=== PATIENT | female | born 1960 | race Caucasian/White ===

== ENCOUNTER 2019-10-12 18:32 | Observation (INO) | payer OTHER ==
[2019-10-12] MEDS ORDERED: BABY ASPIRIN 81 MG CHEW PO ONE (18:59)
[2019-10-12] MEDS ORDERED: NITRO-BID 2% UD PACKETS TOP ONE (18:59)
[2019-10-12] MEDS ORDERED: APRESOLINE 20 MG/ML INJ IV ONE (19:01)
[2019-10-12] MEDS ORDERED: NITRO-BID 2% UD PACKETS ONE (19:03)
[2019-10-12] MEDS ORDERED: BABY ASPIRIN 81 MG CHEW ONE (19:03)
[2019-10-12] MEDS ORDERED: APRESOLINE 20 MG/ML INJ ONE (19:04)
[2019-10-12 19:09] LABS: Absolute Neutrophil Ct (ANC) 3.71 (1.4-6.9); Basophil (Absolute #) 0.06 (0-0.4); Eosinophil % 1.9 % (0.00-5.0); Eosinophil (Absolute #) 0.11 (0-0.5); Hemoglobin 14.7 gm/dl (12.0-16.0); Lymphocyte (Absolute #) 1.56 (1.0-4.6); Lymphocytes % 26.6 % (24.0-44.0); Mean Cell Volume 100.9 fl (78-100); Mean Corpuscular Hemoglobin 34.5 pg (26-32); Mean Corpuscular Hgb Concent. 34.2 g/dl (32-36); Mean Platelet Volume 8.8 fl (7.5-11.0); Monocyte (Absolute #) 0.42 (0.0-1.3); Monocytes % 7.2 % (0.0-12.0); Neutrophil % 63.3 % (36.0-66.0); Platelet Count 211 K/mm3 (150-450); Red Blood Count 4.26 M/mm3 (4.1-5.4); Red Cell Distribution Width 14.1 % (11.5-14.0); White Blood Count 5.9 K/mm3 (4.0-10.5)
--- NOTE | 2019-10-12 19:09 | ERPHSYRPT ---
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, pt stated that she started taking synthroid today, pt states that she hasn't felt well since the treadmill yesterday and then today she has felt like she has had pressure in her chest, left arm is uncomfortable and feels like her chest pressure goes out through the back, pt states that she feels "shaky", headache Triage Nursing Assessment: Pt's daughter brought her to the ER, hypertensive, pt denies pain but states that she has pressure in her chest, no edmea, skin n/w /d, bowel sounds heard in all 4, heart sounds heard, lungs clear Physician History: 58 years old female presented in the ER with chief complaint of substernal chest pressure and tightness since yesterday. Patient reports she is been feeling off and on chest tightness and pressure for quite some time, was recommended outpatient echo and stress test which she has done yesterday and since then her pressure and tightness is getting worse. It is radiating to the left arm without any significant aggravating or relieving factors. She also noticed her blood pressure is more than 200 although she does not take any antihypertensive routinely. She is recently diagnosed with hypothyroidism and started taking Synthroid today. No shortness of breath no cough but has some palpitations at times. Denies any history of cardiac cath. Timing/Duration: yesterday, intermittent, worse Activities at Onset: rest Quality: pressure, tightness Location: substernal, central Chest Pain Radiation: arm Severity of Pain-Max: moderate Severity of Pain-Current: moderate Modifying Factors: Improves With: nothing Associated Symptoms: palpitations Prior Chest Pain/Cardiac Workup: echocardiography, stress test Nitro Today/Relief: no nitro taken today Aspirin Treatment Today: no aspirin today Allergies/Adverse Reactions: No Known Drug Allergies Allergy (Verified 10/12/19 18:55) Home Medications: Levothyroxine Sodium [Euthyrox] 50 mcg PO DAILY 10/12/19 [History] Travel Risk - International Travel Have you traveled outside of the country in past 3 weeks: No Have you or anyone close to you been diagnosed with or: No Do your reside in a community with a known COVID-19 case?: Yes If Yes where:: [facility] - Coronavirus Screening Has patient experienced Coronavirus symptoms: No - Review of Systems Constitutional: Fatigue Eyes: No Symptoms Ears, Nose, & Throat: No Symptoms Respiratory: No Symptoms Cardiac: Chest Pain, Palpitations Abdominal/Gastrointestinal: No Symptoms Genitourinary Symptoms: No Symptoms Musculoskeletal: No Symptoms Skin: No Symptoms Neurological: No Symptoms Psychological: No Symptoms Endocrine: No Symptoms Hematologic/Lymphatic: No Symptoms Immunological/Allergic: No Symptoms - Past Medical History Pertinent Past Medical History: Yes Endocrine Medical History: Hypothyroidism - Past Surgical History Past Surgical History: Yes Female Surgical History: Section, Tubal Ligation - Social History Smoking Status: Former smoker Exposure to second hand smoke: No Drug Use: none Patient Lives Alone: No - Female History Hx Now: No (menopause) - Nursing Vital Signs Nursing Vital Signs: Initial Vital Signs Temperature 98.5 F 10/12/19 18:36 Pulse Rate 94 H 10/12/19 18:36 Respiratory Rate 18 10/12/19 18:36 Blood Pressure 220/121 10/12/19 18:36 O2 Sat by Pulse Oximetry 98 10/12/19 18:36 Pain Scale Pain Intensity 3 - Physical Exam General Appearance: no apparent distress, alert, anxiety Eye Exam: PERRL/EOMI, eyes nml inspection Ears, Nose, Throat Exam: normal ENT inspection, TMs normal, pharynx normal Neck Exam: normal inspection, non-tender, supple, full range of motion Respiratory Exam: normal breath sounds, lungs clear, No respiratory distress Cardiovascular Exam: regular rate/rhythm, normal heart sounds, normal peripheral pulses Gastrointestinal/Abdomen Exam: soft, normal bowel sounds, No tenderness Back Exam: normal inspection, normal range of motion, No CVA tenderness Extremity Exam: normal inspection, normal range of motion Neurologic Exam: alert, oriented x 3, cooperative, 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 as tested Skin Exam: normal color SpO2 Interpretation: normal SpO2: 97 O2 Delivery: Room Air - Course Nursing assessment & vital signs reviewed: Yes EKG Interpreted by Me: RATE, NORMAL AXIS Ordered Tests: Active Orders 24 hr Category Date Time Status [employer] STAT Care 10/12/19 18:46 Active EKG-ER Only STAT Care 10/12/19 18:45 Active IV Insertion STAT Care 10/12/19 18:45 Active Pulse Oximetry (ED) STAT Care 10/12/19 18:46 Active CHEST 1 VIEW (PORTABLE) Stat Exams 10/12/19 19:17 Taken CBC W DIFF Stat Lab 10/12/19 18:42 Completed CMP Stat Lab 10/12/19 18:42 Completed D-DIMER QUANTITATIVE Stat Lab 10/12/19 18:42 Completed NT PRO BNP Stat Lab 10/12/19 18:42 Completed TROPONIN Q3H Lab 10/12/19 18:42 Completed TROPONIN Q3H Lab 10/12/19 22:00 Ordered TROPONIN Q3H Lab 10/13/19 01:00 Ordered TROPONIN Q3H Lab 10/13/19 04:00 Ordered TROPONIN Q3H Lab 10/13/19 07:00 Ordered Transfer Order Routine Transfer 10/12/19 Ordered Medication Summary Discontinued Medications Generic Name Dose Route Start Last Admin Trade Name Freq PRN Reason Stop Dose Admin Aspirin 324 mg 10/12/19 18:59 10/12/19 19:06 Baby Aspirin 81 Mg Chew PO 10/12/19 19:00 324 mg STAT ONE Administration Aspirin Confirm 10/12/19 19:03 Baby Aspirin 81 Mg Chew Administered 10/12/19 19:04 Dose 324 mg .ROUTE .STK-MED ONE Hydralazine HCl 10 mg 10/12/19 19:01 10/12/19 19:06 Apresoline 20 Mg/Ml Inj IV 10/12/19 19:02 10 mg STAT ONE Administration Hydralazine HCl Confirm 10/12/19 19:04 Apresoline 20 Mg/Ml Inj Administered 10/12/19 19:05 Dose 20 mg .ROUTE .STK-MED ONE Nitroglycerin 1 gm 10/12/19 18:59 10/12/19 19:06 Nitro-Bid 2% Ud Packets TOP 10/12/19 19:00 1 gm STAT ONE Administration Nitroglycerin Confirm 10/12/19 19:03 Nitro-Bid 2% Ud Packets Administered 10/12/19 19:04 Dose 1 gm .ROUTE .STK-MED ONE Lab/Rad Data: Laboratory Result Diagrams 10/12/19 18:42 10/12/19 18:42 Laboratory Results 10/12/19 10/12/19 10/12/19 Range/Units 18:42 18:42 18:42 WBC (4.0-10.5) K/mm3 RBC (4.1-5.4) M/mm3 Hgb (12.0-16.0) gm/dl Hct (35-47) % MCV (78-100) fl MCH (26-32) pg MCHC (32-36) g/dl RDW (11.5-14.0) % Plt Count (150-450) K/mm3 MPV (7.5-11.0) fl Gran % (36.0-66.0) % Eos # (Auto) (0-0.5) Absolute Lymphs (auto) (1.0-4.6) Absolute Monos (auto) (0.0-1.3) Lymphocytes % (24.0-44.0) % Monocytes % (0.0-12.0) % Eosinophils % (0.00-5.0) % Basophils % (0.0-0.4) % Absolute Granulocytes (1.4-6.9) Basophils # (0-0.4) D-Dimer 386 (215-500) ng/mL Sodium 138 (137-145) mmol/L Potassium 3.7 (3.5-5.1) mmol/L Chloride 99 (98-107) mmol/L Carbon Dioxide 29 (22-30) mmol/L Anion Gap 13.7 (5-15) MEQ/L BUN 22 H (7-17) mg/dL Creatinine 0.80 (0.52-1.04) mg/dL Estimated GFR > 60.0 ML/MIN Glucose 103 (74-106) mg/dL Calcium 9.2 (8.4-10.2) mg/dL Total Bilirubin 0.60 (0.2-1.3) mg/dL AST 30 (14-36) U/L ALT 25 (0-35) U/L Alkaline Phosphatase 83 (38-126) U/L Troponin I < 0.012 (0.000-0.034) ng/mL NT-Pro-B Natriuret Pep 95.6 (0-900) pg/mL Serum Total Protein 8.3 H (6.3-8.2) g/dL Albumin 4.6 (3.5-5.0) g/dL 06/05/20 Range/Units 18:42 WBC 5.9 (4.0-10.5) K/mm3 RBC 4.26 (4.1-5.4) M/mm3 Hgb 14.7 (12.0-16.0) gm/dl Hct 43.0 (35-47) % MCV 100.9 H (78-100) fl MCH 34.5 H (26-32) pg MCHC 34.2 (32-36) g/dl RDW 14.1 H (11.5-14.0) % Plt Count 211 (150-450) K/mm3 MPV 8.8 (7.5-11.0) fl Gran % 63.3 (36.0-66.0) % Eos # (Auto) 0.11 (0-0.5) Absolute Lymphs (auto) 1.56 (1.0-4.6) Absolute Monos (auto) 0.42 (0.0-1.3) Lymphocytes % 26.6 (24.0-44.0) % Monocytes % 7.2 (0.0-12.0) % Eosinophils % 1.9 (0.00-5.0) % Basophils % 1.0 (0.0-0.4) % Absolute Granulocytes 3.71 (1.4-6.9) Basophils # 0.06 (0-0.4) D-Dimer (215-500) ng/mL Sodium (137-145) mmol/L Potassium (3.5-5.1) mmol/L Chloride (98-107) mmol/L Carbon Dioxide (22-30) mmol/L Anion Gap (5-15) MEQ/L BUN (7-17) mg/dL Creatinine (0.52-1.04) mg/dL Estimated GFR ML/MIN Glucose (74-106) mg/dL Calcium (8.4-10.2) mg/dL Total Bilirubin (0.2-1.3) mg/dL AST (14-36) U/L ALT (0-35) U/L Alkaline Phosphatase (38-126) U/L Troponin I (0.000-0.034) ng/mL NT-Pro-B Natriuret Pep (0-900) pg/mL Serum Total Protein (6.3-8.2) g/dL Albumin (3.5-5.0) g/dL - Progress Progress: improved, re-examined Air Movement: good Progress Note: 10/12/19 20:48 58 years old is evaluated for chest pressure tightness and elevated blood pressure. She is given aspirin and Nitropaste along with one-time 10 mg dose of hydralazine, on reevaluation her chest pain is almost gone and feeling much better. Her headache is no more. Blood pressure improved to 170 systolic. EKG did not show acute ST elevation but has some questionable depressions. Initial troponins are negative. She has a negative D-dimers as well. Chest x- ray I did not appreciate any acute cardiopulmonary findings. With patient's intermittent chest pain and worsening after exertion yesterday stress test, needs further evaluation with possible CTA coronaries and serial troponins. I have discussed with hospitalist Dr. Garcia and patient is being admitted. Blood Culture(s) Obtained: No Antibiotics given: No Discussed with : Toribio Will see patient in: hospital (observation) Counseled pt/family regarding: lab results, diagnosis, rad results - Departure Departure Disposition: Observation Clinical Impression: Chest pain, rule out acute myocardial infarction, Hypertensive urgency Condition: Stable Critical Care Time: Yes Critical Care Time(excluding separately billable procedures): Critical 30-74 mins Referrals: MARIALUISA RAMON [Primary Care Provider] -
[2019-10-12 19:26] LABS: ALBUMIN 4.6 g/dL (3.5-5.0); ALKALINE PHOSPHATASE 83 U/L (38-126); ANION GAP 13.7 MEQ/L (5-15); BLOOD UREA NITROGEN 22 mg/dL (7-17); CHLORIDE 99 mmol/L (98-107); Calcium 9.2 mg/dL (8.4-10.2); Carbon Dioxide 29 mmol/L (22-30); Glucose 103 mg/dL (74-106); NT PRO BNP 95.6 pg/mL (0-900); Potassium 3.7 mmol/L (3.5-5.1); SGOT/AST 30 U/L (14-36); SGPT/ALT 25 U/L (0-35); SODIUM 138 mmol/L (137-145); Total Protein 8.3 g/dL (6.3-8.2)
[2019-10-12] MEDS ORDERED: Zofran 4 MG/2 ML VIAL IV PRN (21:14)
[2019-10-12] MEDS ORDERED: APRESOLINE 20 MG/ML INJ IV PRN (21:14)
[2019-10-12] MEDS ORDERED: MAALOX ES 30 ML UNIT DOSE PO PRN (21:14)
[2019-10-12] MEDS ORDERED: MILK OF MAGNESIA 30 ML PO PRN (21:14)
[2019-10-12] MEDS ORDERED: TYLENOL 325 MG PO PRN (21:14)
[2019-10-12] MEDS ORDERED: Senokot-S Tablet PO PRN (21:14)
--- NOTE | 2019-10-12 21:39 | XRAY ---
Indication: Chest pain. Comparison: August 27, 2019. Portable chest remains hyperinflated with chronic lung markings. Remaining heart and lungs unremarkable. No new/acute findings.
[2019-10-13 04:58] LABS: Cholesterol 285 mg/dL (50-200); LDL, DIRECT 150 mg/dL (30-100); TRIGLYCERIDE 173 mg/dL (30-150)
[2019-10-13 05:02] LABS: HDL CHOLESTEROL 127 mg/dL (40-60)
[2019-10-13] MEDS ORDERED: Zestril 20 MG PO ONE (10:21)
[2019-10-13] MEDS ORDERED: SYNTHROID 50 MCG PO ONE (10:30)
[2019-10-13] MEDS: Ecotrin 325 MG PO SCH (11:08)
[2019-10-13] MEDS: ENOXAPARIN SODIUM SQ SCH (11:09)
[2019-10-14] MEDS ORDERED: SYNTHROID 50 MCG PO SCH (06:00)
[2019-10-14 08:26] VITALS: BP 139/63; PULSE 69; O2SAT 95
[2019-10-14] MEDS: ENOXAPARIN SODIUM SQ SCH (09:12)
[2019-10-14] MEDS: Ecotrin 325 MG PO SCH (09:12)
[2019-10-14] MEDS ORDERED: Zestril 20 MG PO SCH (10:00)
--- NOTE | 2019-10-14 10:00 | PCM.DCORD ---
- Discharge Discharge Date: 10/14/19 Disposition: Home, Self-Care Condition: Good Prescriptions: New Aspirin EC 325 mg [Ecotrin 325 MG] 325 mg PO DAILY #30 tablet.ec Lisinopril 20 mg [Zestril 20 MG] 20 mg PO DAILY #30 tablet Continue Levothyroxine Sodium [Euthyrox] 50 mcg PO DAILY Additional Instructions: Keep your appointment with carnival worker, Dr. Leos, that is scheduled for Tuesday. Return to ER if you have chest pain, shortness of breath or any other concerns. Follow up with: MARIALUISA RAMON [Primary Care Provider] - 1 Week
--- NOTE | 2019-10-15 14:53 | HP ---
HISTORY OF PRESENT ILLNESS: This is a 58 y/o lady who presented to the Emergency Department yesterday. She reported that she had a stress test the day before and hadn't felt well since then and reported a high BP with systolic into the 200s at home. She reports that she had a chest pain like a squeezing pain along with dyspnea and diaphoresis when she came to the Emergency Room. She denied any nausea. She reports on the outpatient treadmill stress test that they were concerned about a finding on that although RT says it has not been read by the physician yet and that she was referred to see Dr. Leos this coming Tuesday in the clinic, he is a fraud investigator. She reports she feels better now, but still feels "wonky" and when I asked her what she meant, for instance if she was dizzy when she got up, she said yes. She said she hadn't eaten a lot yesterday. She had some leg cramps overnight. She reports the squeezing chest pain is worse when she is lying down. She also had an echocardiogram 10/10/2019 and those results are in [place]. She had maybe some trouble with heart relaxing, but otherwise, the ejection fraction was good and they didn't mention any major valvular abnormalities or any pericardial effusion. REVIEW OF SYSTEMS: No abdomen pain. No nausea or vomiting. No diarrhea. No trouble urinating. No lower extremity edema. No fevers. No rashes. PAST MEDICAL HISTORY: Hypothyroidism, chest pain. PAST SURGICAL HISTORY: X 3. SOCIAL HISTORY: She does not smoke now. She quit 30 years ago. She drinks alcohol 2-3 times/week. She is and lives at home with her and her son. FAMILY HISTORY: Her mother is and at 77 from flu and pneumonia. Her father is and at age 79 from chronic obstructive pulmonary disease and black lung. He was a tobacco user as well. CURRENT MEDICATIONS: Levofloxacin 50 mcg PO daily that was started yesterday. ALLERGIES: NKDA. PHYSICAL EXAMINATION: VITAL SIGNS: Temperature current 98.4, temperature maximum 98.5, heart rate 88, respiratory rate 18, O2 saturation 95% on room air, BP 179/81. GENERAL: The patient is a pleasant, talkative, obese lady lying in bed in no acute distress. CVS: She has a regular rate and rhythm. No murmurs, gallops, or rubs appreciated. CHEST: Clear to auscultation bilaterally. No crackles or wheezes. ABDOMEN: Soft, nontender, nondistended with normal bowel sounds. EXTREMITIES: No clubbing, cyanosis, or edema. SKIN: Warm, dry, and intact. LABORATORY DATA: CBC was within normal limits. CMP with a BUN of 22. Triglycerides 173, cholesterol 285, LDL 150, HDL 127. Chest x-ray was read as hyperinflated chest. EKG is normal sinus rhythm with no ST or T wave changes with a rate of 76. ASSESSMENT AND PLAN: 1. CHEST PAIN. She has had serial negative troponins. She continues on telemetry without any event. She has her Nitropaste still in place. I have asked the nurses to remove that and will see how she is feeling later this afternoon. 2. HYPERTENSION. We are going to start Lisinopril 20 mg PO daily. 3. HYPOTHYROIDISM. Will restart her Synthroid 50 mcg PO daily. 4. DVT PROPHYLAXIS. Will use Lovenox.
--- NOTE | 2019-10-16 16:57 | DS ---
DISCHARGE DIAGNOSIS: 1. CHEST PAIN. 2. HYPERTENSION. 3. HYPOTHYROIDISM. 4. HYPERLIPIDEMIA. DISCHARGE PHYSICAL EXAM: VITALS: Temperature current 98.0, temperature maximum 98.3, heart rate 69, respiratory rate 16, O2 saturation 95% on room air, BP 139/63. GENERAL: The patient was a pleasant, talkative lady sitting up in no acute distress. CVS: She has a regular rate and rhythm. No murmurs, gallops, or rubs. CHEST: Clear to auscultation bilaterally. No crackles or wheezes. ABDOMEN: Soft, nontender, nondistended with normal bowel sounds. EXTREMITIES: No clubbing, cyanosis, or edema. SKIN: Warm, dry, and intact. EARS: Tympanic membranes are normal bilaterally. THROAT: Without any erythema or exudate. HOSPITAL COURSE: 1. Chest pain. The patient ruled out for an acute myocardial infarction. She had a normal EKG. She has a follow-up appointment already scheduled with Dr. Leos for this Tuesday after having an abnormal stress test last week. The patient denies any chest pain at this time. Will have her take aspirin 325 mg PO daily. She does not want to start a cholesterol medicine at this time. She was started on Lisinopril here and will plan to continue that. 2. Hypertension. Her BP is much better controlled with Lisinopril, just may need to continue to be adjusted as an outpatient for an ultimate goal of a BP of less than 120/80. The patient follows up with Vikki Becerra NP and plans to see her. 3. Hypothyroidism. She was recently started on levothyroxine. This was continued during her hospitalization. 4. Hyperlipidemia. The patient had a cholesterol panel that showed an LDL of 150. At this time, she wants to try diet and exercise and does not want to start a cholesterol medicine. DISCHARGE MEDICATIONS: Please see the discharge order. DISPOSITION: Patient was discharged home in fair condition. FOLLOW-UP: She is to follow-up with Vikki Becerra NP as well as adjunct faculty, Dr. Leos.
== END 2019-10-14 11:23 | disposition home or self-care (01) ==
LOC: ED 18:32 → MED SURG 21:04
PROVIDERS: ADMIT Internal Medicine; ATTEND Internal Medicine
DX: R07.9 Chest pain, unspecified (principal); I10 Essential (primary) hypertension; E03.9 Hypothyroidism, unspecified; E78.5 Hyperlipidemia, unspecified; Z79.899 Other long term (current) drug therapy; Z79.01 Long term (current) use of anticoagulants
CPT/HCPCS: 36415; 80053; 80061; 83721; 83880; 84484; 85025; 85379; 93005; 93041; 93268; 96374; 99291; G0378; 36000; 71045; 94760; 99285; J0360; J1650; A9270-GY

== ENCOUNTER 2020-01-15 11:22 | Emergency (ER) | payer OTHER ==
[2020-01-15] MEDS ORDERED: BABY ASPIRIN 81 MG CHEW PO ONE (11:42)
--- NOTE | 2020-01-15 11:45 | ERPHSYRPT ---
- History of Present Illness Time Seen by Provider: 01/15/20 11:40 Historian: patient Exam Limitations: no limitations Patient Subjective Stated Complaint: pain in left chest starting approx 0430 and going to her left shoulder Triage Nursing Assessment: Pt brought to the ER by her , hypertensive, states that the pain is worse when laying down, pulses normal, no edema, abnormal heart sounds heard Physician History: This is a 59-year-old obese white female who has a history of hypertension and hypothyroidism and presents with left anterior chest pain that radiates into her left shoulder. She describes this as an aching. Patient states that she has been under a lot of stress in the last few days. She is working very hard to clean up her home because her [place]. At approximately 4 30 this morning patient had sudden onset of this pain. The pain has improved but has not let up completely. 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 Leos, over the last 2 to 3 months. On 10/22/2019 patient underwent a nuclear medicine stress test which showed no evidence of pharmacologically induced reversible ischemia. Patient's ejection fraction was 67%. On 12/11/[address] cardiac calcium test. Her score was 0. There was no evidence of any coronary artery calcifications in any of her coronary arteries. Patient denies shortness of breath. She has no abdominal pain. She is had no fever or cough symptoms. Timing/Duration: today Activities at Onset: sleep Quality: aching Location: other (Anterior chest) Chest Pain Radiation: arm (Left shoulder) Severity of Pain-Max: mild Severity of Pain-Current: none Modifying Factors: Improves With: nothing Associated Symptoms: denies symptoms Nitro Today/Relief: no nitro taken today Aspirin Treatment Today: unknown Allergies/Adverse Reactions: No Known Drug Allergies Allergy (Verified 01/15/20 11:35) Home Medications: Levothyroxine Sodium [Euthyrox] 75 mcg PO DAILY 10/12/19 [History] Carvedilol 3.125 mg [Coreg 3.125 MG] 3.125 mg PO DAILY 01/15/20 [History] Travel Risk - International Travel Have you traveled outside of the country in past 3 weeks: No - Coronavirus Screening Are you exhibiting any of the following symptoms?: No Close contact with a COVID-19 positive Pt in past 14-21 Days: No - Review of Systems Constitutional: No Symptoms Eyes: No Symptoms Ears, Nose, & Throat: No Symptoms Respiratory: No Symptoms Cardiac: Chest Pain Abdominal/Gastrointestinal: No Symptoms Genitourinary Symptoms: No Symptoms Musculoskeletal: No Symptoms Skin: No Symptoms Neurological: No Symptoms Psychological: No Symptoms - Past Medical History Pertinent Past Medical History: Yes Neurological History: No Pertinent History ENT History: No Pertinent History Cardiac History: Other Respiratory History: No Pertinent History Endocrine Medical History: Hypothyroidism Musculoskeletal History: No Pertinent History GI Medical History: No Pertinent History History: No Pertinent History Psycho-Social History: No Pertinent History Female Reproductive Disorders: No Pertinent History Other Medical History: "heart is thick or stiff" - Past Surgical History Past Surgical History: Yes Neuro Surgical History: No Pertinent History Cardiac: No Pertinent History Respiratory: No Pertinent History Gastrointestinal: No Pertinent History Genitourinary: No Pertinent History Musculoskeletal: No Pertinent History Female Surgical History: Section, Tubal Ligation - Social History Smoking Status: Former smoker Exposure to second hand smoke: No Drug Use: none Patient Lives Alone: No - Female History Hx Now: No - Nursing Vital Signs Nursing Vital Signs: Initial Vital Signs Temperature 98.1 F 01/15/20 11:25 Pulse Rate 67 01/15/20 11:25 Respiratory Rate 16 01/15/20 11:25 Blood Pressure 183/82 01/15/20 11:25 O2 Sat by Pulse Oximetry 96 01/15/20 11:25 Pain Scale Pain Intensity 0 - Physical Exam General Appearance: no apparent distress, alert, anxiety, obese Eye Exam: PERRL/EOMI, eyes nml inspection Ears, Nose, Throat Exam: normal ENT inspection, moist mucous membranes Neck Exam: normal inspection, non-tender, supple, full range of motion Respiratory Exam: normal breath sounds, chest tenderness, lungs clear, airway intact, No respiratory distress Cardiovascular Exam: regular rate/rhythm, normal heart sounds, normal peripheral pulses Gastrointestinal/Abdomen Exam: soft, normal bowel sounds, No tenderness Pelvic Exam: not done Rectal Exam: not done Back Exam: normal inspection, normal range of motion, No CVA tenderness, No vertebral tenderness Extremity Exam: normal inspection, normal range of motion, pelvis stable Neurologic Exam: alert, oriented x 3, cooperative, 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 There are no significant changes when compared to an EKG that was performed on 10/12/2019.) Ordered Tests: Active Orders 24 hr Category Date Time Status Field Clinical Engineer STAT Care 01/15/20 11:43 Active EKG-ER Only STAT Care 01/15/20 11:42 Active IV Insertion STAT Care 01/15/20 11:42 Active Pulse Oximetry (ED) STAT Care 01/15/20 11:42 Active CHEST 1 VIEW (PORTABLE) Stat Exams 01/15/20 11:43 Completed CHEST WITH CONTRAST [CT] Stat Exams 01/15/20 12:52 Completed CBC W DIFF Stat Lab 01/15/20 11:58 Completed CMP Stat Lab 01/15/20 11:58 Completed D-DIMER QUANTITATIVE Stat Lab 01/15/20 11:58 Completed NT PRO BNP Stat Lab 01/15/20 11:58 Completed PROTIME WITH INR Stat Lab 01/15/20 11:58 Completed TROPONIN Q3H Lab 01/15/20 11:58 Completed TROPONIN Q3H Lab 01/15/20 14:45 Ordered TROPONIN Q3H Lab 01/15/20 17:45 Ordered TROPONIN Q3H Lab 01/15/20 20:45 Ordered TROPONIN Q3H Lab 01/15/20 23:45 Ordered Medication Summary Discontinued Medications Generic Name Dose Route Start Last Admin Trade Name Freq PRN Reason Stop Dose Admin Aspirin 324 mg 01/15/20 11:42 01/15/20 11:48 Baby Aspirin 81 Mg Chew PO 01/15/20 11:43 324 mg STAT ONE Administration Aspirin Confirm 01/15/20 11:47 Baby Aspirin 81 Mg Chew Administered 01/15/20 11:48 Dose 324 mg .ROUTE .STK-MED ONE Sodium Chloride 500 mls @ 500 mls/hr 01/15/20 12:52 01/15/20 14:21 Sodium Chloride 0.9% 500 Ml IV 01/15/20 13:51 Infused .Q1H ONE Infusion Sodium Chloride Confirm 01/15/20 12:55 Sodium Chloride 0.9% 500 Ml Administered 01/15/20 12:56 Dose 500 mls @ ud IV .STK-MED ONE Metoprolol Tartrate 5 mg 01/15/20 12:11 01/15/20 12:13 Lopressor 5 Mg/5 Ml Injection IV 01/15/20 12:12 5 mg STAT ONE Administration Metoprolol Tartrate Confirm 01/15/20 12:13 Lopressor 5 Mg/5 Ml Injection Administered 01/15/20 12:14 Dose 5 mg IV .STK-MED ONE Lab/Rad Data: Laboratory Result Diagrams 01/15/20 11:58 01/15/20 11:58 Laboratory Results 01/15/20 01/15/20 01/15/20 Range/Units 11:58 11:58 11:58 WBC (4.0-10.5) K/mm3 RBC (4.1-5.4) M/mm3 Hgb (12.0-16.0) gm/dl Hct (35-47) % MCV (78-100) fl MCH (26-32) pg MCHC (32-36) g/dl RDW (11.5-14.0) % Plt Count (150-450) K/mm3 MPV (7.5-11.0) fl Gran % (36.0-66.0) % Eos # (Auto) (0-0.5) Absolute Lymphs (auto) (1.0-4.6) Absolute Monos (auto) (0.0-1.3) Lymphocytes % (24.0-44.0) % Monocytes % (0.0-12.0) % Eosinophils % (0.00-5.0) % Basophils % (0.0-0.4) % Absolute Granulocytes (1.4-6.9) Basophils # (0-0.4) PT 10.0 (9.95-12.35) SECONDS INR 0.89 (0.8-3.0) D-Dimer 657 H* (215-500) ng/mL Sodium 136 L (137-145) mmol/L Potassium 4.6 (3.5-5.1) mmol/L Chloride 102 (98-107) mmol/L Carbon Dioxide 29 (22-30) mmol/L Anion Gap 9.9 (5-15) MEQ/L BUN 19 H (7-17) mg/dL Creatinine 0.67 (0.52-1.04) mg/dL Estimated GFR > 60.0 ML/MIN Glucose 121 H (74-106) mg/dL Calcium 9.3 (8.4-10.2) mg/dL Total Bilirubin 0.40 (0.2-1.3) mg/dL AST 38 H (14-36) U/L ALT 26 (0-35) U/L Alkaline Phosphatase 97 (38-126) U/L Troponin I < 0.012 (0.000-0.034) ng/mL NT-Pro-B Natriuret Pep 229 (0-900) pg/mL Serum Total Protein 6.6 (6.3-8.2) g/dL Albumin 3.9 (3.5-5.0) g/dL 01/15/20 Range/Units 11:58 WBC 4.8 (4.0-10.5) K/mm3 RBC 4.10 (4.1-5.4) M/mm3 Hgb 13.8 (12.0-16.0) gm/dl Hct 42.4 (35-47) % MCV 103.4 H (78-100) fl MCH 33.7 H (26-32) pg MCHC 32.5 (32-36) g/dl RDW 13.0 (11.5-14.0) % Plt Count 198 (150-450) K/mm3 MPV 9.0 (7.5-11.0) fl Gran % 70.1 H (36.0-66.0) % Eos # (Auto) 0.10 (0-0.5) Absolute Lymphs (auto) 0.89 L (1.0-4.6) Absolute Monos (auto) 0.42 (0.0-1.3) Lymphocytes % 18.5 L (24.0-44.0) % Monocytes % 8.7 (0.0-12.0) % Eosinophils % 2.1 (0.00-5.0) % Basophils % 0.6 (0.0-0.4) % Absolute Granulocytes 3.38 (1.4-6.9) Basophils # 0.03 (0-0.4) PT (9.95-12.35) SECONDS INR (0.8-3.0) D-Dimer (215-500) ng/mL Sodium (137-145) mmol/L Potassium (3.5-5.1) mmol/L Chloride (98-107) mmol/L Carbon Dioxide (22-30) mmol/L Anion Gap (5-15) MEQ/L BUN (7-17) mg/dL Creatinine (0.52-1.04) mg/dL Estimated GFR ML/MIN Glucose (74-106) mg/dL Calcium (8.4-10.2) mg/dL Total Bilirubin (0.2-1.3) mg/dL AST (14-36) U/L ALT (0-35) U/L Alkaline Phosphatase (38-126) U/L Troponin I (0.000-0.034) ng/mL NT-Pro-B Natriuret Pep (0-900) pg/mL Serum Total Protein (6.3-8.2) g/dL Albumin (3.5-5.0) g/dL - Progress Progress: improved, re-examined Air Movement: good Progress Note: 01/15/20 12:14 Chest x-ray reveals no evidence of any acute pulmonary process. 01/15/20 14:24 CAT scan of the chest with contrast reveals no pulmonary emboli no acute cardiopulmonary abnormality. 01/15/20 14:25 Chest pain has resolved. Blood Culture(s) Obtained: No Antibiotics given: No Counseled pt/family regarding: lab results, diagnosis, need for follow-up, rad results - Departure Departure Disposition: Home Clinical Impression: Chest pain Condition: Stable Critical Care Time: No Referrals: MARIALUISA RAMON [Primary Care Provider] - Additional Instructions: Take your medication as prescribed. Follow-up with your primary care physician for further management. Return to the emergency department if your symptoms worsen.
[2020-01-15] MEDS ORDERED: BABY ASPIRIN 81 MG CHEW ONE (11:47)
[2020-01-15 12:04] LABS: Absolute Neutrophil Ct (ANC) 3.38 (1.4-6.9); BASOPHIL % 0.6 % (0.0-0.4); Basophil (Absolute #) 0.03 (0-0.4); Eosinophil % 2.1 % (0.00-5.0); Hematocrit 42.4 % (35-47); Hemoglobin 13.8 gm/dl (12.0-16.0); Lymphocyte (Absolute #) 0.89 (1.0-4.6); Lymphocytes % 18.5 % (24.0-44.0); Mean Cell Volume 103.4 fl (78-100); Mean Corpuscular Hemoglobin 33.7 pg (26-32); Mean Corpuscular Hgb Concent. 32.5 g/dl (32-36); Monocyte (Absolute #) 0.42 (0.0-1.3); Monocytes % 8.7 % (0.0-12.0); Neutrophil % 70.1 % (36.0-66.0); Platelet Count 198 K/mm3 (150-450); White Blood Count 4.8 K/mm3 (4.0-10.5)
--- NOTE | 2020-01-15 12:07 | XRAY ---
Indication: Chest pain/pressure. Comparison: October 12, 2019. Portable chest remains hyperinflated without focal infiltrate, consolidation, or large effusion. Heart is not enlarged. Bony thorax intact again with mild osteopenia and degenerative changes. Impression: Continued nonacute hyperinflated chest.
[2020-01-15] MEDS ORDERED: LOPRESSOR 5 MG/5 ML INJECTION IV ONE ×2 (12:11→12:13)
[2020-01-15 12:26] LABS: INR 0.89 (0.8-3.0)
[2020-01-15 12:42] LABS: ALBUMIN 3.9 g/dL (3.5-5.0); ALKALINE PHOSPHATASE 97 U/L (38-126); ANION GAP 9.9 MEQ/L (5-15); BLOOD UREA NITROGEN 19 mg/dL (7-17); CHLORIDE 102 mmol/L (98-107); Calcium 9.3 mg/dL (8.4-10.2); Carbon Dioxide 29 mmol/L (22-30); Creatinine 1 0.67 mg/dL (0.52-1.04); EST GLOMERULAR FILTRATION RATE > 60.0 ML/MIN; Glucose 121 mg/dL (74-106); NT PRO BNP 229 pg/mL (0-900); Potassium 4.6 mmol/L (3.5-5.1); SGOT/AST 38 U/L (14-36); SGPT/ALT 26 U/L (0-35); SODIUM 136 mmol/L (137-145); Total Protein 6.6 g/dL (6.3-8.2)
[2020-01-15] MEDS ORDERED: Sodium Chloride 0.9% 500 ML 500 ML IV ONE ×2 (12:52→12:55)
[2020-01-15 13:22] VITALS: BP 146/74
--- NOTE | 2020-01-15 13:39 | XRAY ---
Indication: Chest pain/pressure. Elevated d-dimer. Multiple contiguous axial images obtained through the chest using 80 cc Isovue 370 contrast and PE protocol. Comparison: None There is good opacification of the pulmonary arteries to include the lobar and segmental branches. No pulmonary embolus. Heart is not enlarged. Aorta is normal in course and caliber. No pathologic mediastinal/hilar lymphadenopathy. Small hiatal hernia. Lungs are inflated and clear. Bony thorax intact with minimal degenerative changes throughout the spine. Limited upper abdomen demonstrates mild fatty liver. Impression: 1. Negative pulmonary embolus. No acute cardiopulmonary abnormalities. 2. Incidental small hiatal hernia and fatty liver.
[2020-01-15 14:22] VITALS: PULSE 68
[2020-01-15 14:26] VITALS: O2SAT 96
== END 2020-01-15 14:35 | disposition home or self-care (01) ==
LOC: ED 11:22
DX: R07.9 Chest pain, unspecified (principal)
CPT/HCPCS: 36000; 36415; 71045; 71260; 80053; 83880; 84484; 85025; 85379; 85610; 93005; 93041; 94760; 96360; 96374; 99285; A9270-GY

== ENCOUNTER 2020-09-13 13:03 | Emergency (ER) | payer OTHER ==
--- NOTE | 2020-09-13 13:18 | ERPHSYRPT ---
- History of Present Illness Time Seen by Provider: 09/13/20 13:17 Source: patient Exam Limitations: no limitations Physician History: This is an overweight 59-year-old white female who has a history of hypertension and hypothyroidism who slipped in the bathroom tub and hit her lower back 1 week ago. The pain had been improving. However yesterday the pain increased then improved mildly. Today, the pain was more significant and she was having a lot of back spasms. She has no urinary complaints. She did use Flexeril that she had and that seemed to only slightly help. She had not seen any medical personnel or facilities for evaluation and management. Timing/Duration: week(s) (1), worse Method of Injury: fall Quality: aching Back Pain Location: lumbar spine, paraspinous muscles Severity of Pain-Max: moderate Severity of Pain-Current: moderate Modifying Factors: Improves With: movement Associated Symptoms: lower back pain, muscle spasms, No fever, No chills, No nausea, No vomiting, No problems urinating, No numbness in legs/feet Previous symptoms: no prior history Allergies/Adverse Reactions: No Known Drug Allergies Allergy (Verified 09/13/20 13:25) Home Medications: Levothyroxine Sodium [Euthyrox] 75 mcg PO DAILY 10/12/19 [History] Carvedilol 3.125 mg [Coreg 3.125 MG] 3.125 mg PO DAILY 01/15/20 [History] Travel Risk - International Travel Have you traveled outside of the country in past 3 weeks: No - Coronavirus Screening Are you exhibiting any of the following symptoms?: No Close contact with a COVID-19 positive Pt in past 14-21 Days: No - Vaccine Status Have you recieved a Covid-19 vaccination: No - Review of Systems Constitutional: No Symptoms Eyes: No Symptoms Ears, Nose, & Throat: No Symptoms Respiratory: No Symptoms Cardiac: No Symptoms Abdominal/Gastrointestinal: No Symptoms Genitourinary Symptoms: No Symptoms Musculoskeletal: Back Pain, Injury Skin: No Symptoms Neurological: No Symptoms Psychological: No Symptoms Endocrine: No Symptoms Hematologic/Lymphatic: No Symptoms Immunological/Allergic: No Symptoms All Other Systems: Reviewed and Negative - Past Medical History Pertinent Past Medical History: Yes Neurological History: No Pertinent History ENT History: No Pertinent History Cardiac History: Other Respiratory History: No Pertinent History Endocrine Medical History: Hypothyroidism Musculoskeletal History: No Pertinent History GI Medical History: No Pertinent History History: No Pertinent History Psycho-Social History: No Pertinent History Female Reproductive Disorders: No Pertinent History Other Medical History: "heart is thick or stiff" - Past Surgical History Past Surgical History: Yes Neuro Surgical History: No Pertinent History Cardiac: No Pertinent History Respiratory: No Pertinent History Gastrointestinal: No Pertinent History Genitourinary: No Pertinent History Musculoskeletal: No Pertinent History Female Surgical History: Section, Tubal Ligation - Social History Smoking Status: Former smoker Exposure to second hand smoke: No Drug Use: none Patient Lives Alone: No - Nursing Vital Signs Nursing Vital Signs: Initial Vital Signs Temperature 97.6 F 09/13/20 13:16 Pulse Rate 67 09/13/20 13:16 Blood Pressure 169/75 09/13/20 13:16 O2 Sat by Pulse Oximetry 98 09/13/20 13:16 Pain Scale Pain Intensity 2 - Physical Exam General Appearance: no apparent distress, alert, anxiety Eye Exam: PERRL/EOMI, eyes nml inspection Ears, Nose, Throat Exam: normal ENT inspection, moist mucous membranes Neck Exam: normal inspection, non-tender, supple, full range of motion Respiratory Exam: normal breath sounds, lungs clear, airway intact, No chest tenderness, No respiratory distress Cardiovascular Exam: regular rate/rhythm, normal heart sounds, normal peripheral pulses Pelvic Exam: not done Rectal Exam: not done Back Exam: normal inspection, normal range of motion, muscle spasm (Right side), No CVA tenderness, No vertebral tenderness Extremity Exam: normal inspection, normal range of motion, pelvis stable Neurologic Exam: alert, oriented x 3, cooperative, 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 nml as tested, normal mood/affect, nml cerebellar function, nml station & gait, sensation nml Skin Exam: normal color, warm, dry Lymphatic Exam: adenopathy SpO2 Interpretation: normal O2 Delivery: Room Air - Course Nursing assessment & vital signs reviewed: Yes Ordered Tests: Active Orders 24 hr Category Date Time Status LUMBAR LIMITED (2 OR 3 VIEWS) Stat Exams 09/13/20 13:29 Taken Medication Summary Discontinued Medications Generic Name Dose Route Start Last Admin Trade Name Freq PRN Reason Stop Dose Admin Hydromorphone HCl 0.5 mg 09/13/20 15:25 09/13/20 15:42 Hydromorphone 1 Mg/Ml Injection IM 09/13/20 15:26 0.5 mg STAT ONE Administration Hydromorphone HCl Confirm 09/13/20 15:35 Hydromorphone 1 Mg/Ml Injection Administered 09/13/20 15:36 Dose 1 mg .ROUTE .STK-MED ONE Lorazepam 0.5 mg 09/13/20 15:29 09/13/20 15:43 Ativan 2 Mg/1 Ml Vial IM 09/13/20 15:30 0.5 mg STAT ONE Administration Lorazepam Confirm 09/13/20 15:34 Ativan 2 Mg/1 Ml Vial Administered 09/13/20 15:35 Dose 2 mg .ROUTE .STK-MED ONE Methylprednisolone Sodium Succinate 125 mg 09/13/20 15:26 09/13/20 15:44 Solu-Medrol 125 Mg IM 09/13/20 15:27 125 mg STAT ONE Administration Methylprednisolone Sodium Succinate Confirm 09/13/20 15:35 Solu-Medrol 125 Mg Administered 09/13/20 15:36 Dose 125 mg .ROUTE .STK-MED ONE Ondansetron HCl 4 mg 09/13/20 15:28 09/13/20 15:44 Zofran Odt 4 Mg PO 09/13/20 15:29 4 mg STAT ONE Administration Ondansetron HCl Confirm 09/13/20 15:34 Zofran Odt 4 Mg Administered 09/13/20 15:35 Dose 4 mg .ROUTE .STK-MED ONE - Progress Progress: improved, pain not gone completely, re-examined Progress Note: 09/13/20 15:58 Lumbar x-rays show no acute fracture or subluxation Counseled pt/family regarding: diagnosis, need for follow-up, rad results - Departure Departure Disposition: Home Clinical Impression: Fall with injury Condition: Stable Critical Care Time: No Referrals: MARIALUISA RAMON [Primary Care Provider] - Additional Instructions: Take medication as prescribed. Stop your Flexeril. Follow-up with your primary care physician for further management. Prescriptions: Hydrocodone/APAP 5/325 [[place] 5/325 mg] 1 each PO Q8H PRN PRN #6 tablet MDD 3 PRN Reason: Pain Carisoprodol 350 mg [[place] 350 mg] 350 mg PO Q8H PRN PRN #10 tablet PRN Reason: Muscle Spasms Prednisone 10 mg [Deltasone 10 mg] 10 mg PO TID #12 tablet
[2020-09-13 13:25] VITALS: O2SAT 98
[2020-09-13] MEDS ORDERED: Hydromorphone 1 mg/ml Injection IM ONE (15:25)
[2020-09-13] MEDS ORDERED: solu-MEDROL 125 MG IM ONE (15:26)
[2020-09-13] MEDS ORDERED: ZOFRAN ODT 4 MG PO ONE (15:28)
[2020-09-13] MEDS ORDERED: Ativan 2 MG/1 ML VIAL IM ONE (15:29)
[2020-09-13] MEDS ORDERED: Ativan 2 MG/1 ML VIAL ONE (15:34)
[2020-09-13] MEDS ORDERED: ZOFRAN ODT 4 MG ONE (15:34)
[2020-09-13] MEDS ORDERED: solu-MEDROL 125 MG ONE (15:35)
[2020-09-13] MEDS ORDERED: Hydromorphone 1 mg/ml Injection ONE (15:35)
[2020-09-13 15:58] VITALS: BP 158/60; PULSE 60
--- NOTE | 2020-09-13 20:22 | XRAY ---
Indication: Pain following fall one week ago. Comparison: None 3 view lumbar spine demonstrates 4 lumbar segments with sacralized L5 in normal alignment with mild osteopenia, minimal multilevel thoracolumbar endplate spurring, mild bilateral L4-L5 degenerative facet arthropathy, and minimal vascular calcifications. No other bony, articular, or soft tissue abnormalities.
== END 2020-09-13 16:35 | disposition home or self-care (01) ==
LOC: ED 13:03
DX: M54.5 Low back pain (principal); W01.198A Fall on same level from slipping, tripping and stumbling with subsequent striking against other object, initial encounter; Y93.E1 Activity, personal bathing and showering; Y92.002 Bathroom of unspecified non-institutional (private) residence as the place of occurrence of the external cause; I10 Essential (primary) hypertension; E03.9 Hypothyroidism, unspecified; M62.830 Muscle spasm of back
CPT/HCPCS: 72100; 96372; 99284; J1170; J2060; J2930; Q0162

== ENCOUNTER 2021-04-14 14:26 | Emergency (ER) | payer OTHER ==
[2021-04-14] MEDS ORDERED: XYLOCAINE 1% HCL 20 ML MDV IJ ONE (14:27)
--- NOTE | 2021-04-14 14:29 | ERPHSYRPT ---
- History of Present Illness Time Seen by Provider: 04/14/21 14:28 Source: patient Exam Limitations: no limitations Physician History: This is a 60-year-old white female patient of nurse practitioner Tamie Becerra who has a history of hypertension hypothyroidism and is a former smoker and presents with sore throat and cough for 3-day duration. She has no known exposures to individuals with similar symptoms. Patient has taken [id number] cough medicine. She has nasal congestion and what she describes as postnasal drip. She has a mild sore throat as well. She has no chest pain. She has no shortness of breath. She has no abdominal pain. She denies nausea vomiting and diarrhea. She denies fever. Timing/Duration: day(s) (3) Cough Quality/Degree: mild (To moderate), dry cough Possible Cause: no prior episodes Modifying Factors: Improves With: coughing Associated Symptoms: cough, headache (From coughing), muscle aches (From cou ghing), No chest pain/soreness, No shortness of breath Allergies/Adverse Reactions: No Known Drug Allergies Allergy (Verified 04/14/21 14:41) Home Medications: Levothyroxine Sodium [Euthyrox] 112 mcg PO DAILY 10/12/19 [History] Carvedilol 3.125 mg [Coreg 3.125 MG] 3.125 mg PO DAILY 01/15/20 [History] Hx Tetanus, Diphtheria Vaccination/Date Given: Yes Hx Influenza Vaccination/Date Given: Yes Hx Pneumococcal Vaccination/Date Given: Yes Travel Risk - International Travel Have you traveled outside of the country in past 3 weeks: No - Coronavirus Screening Are you exhibiting any of the following symptoms?: Yes Symptoms: Cough: New Onset Close contact with a COVID-19 positive Pt in past 14-21 Days: No - Vaccine Status Have you recieved a Covid-19 vaccination: No - Review of Systems Constitutional: No Symptoms Eyes: No Symptoms Ears, Nose, & Throat: Nose Congestion, Nose Discharge, Throat Pain, Hoarse (Mild) Respiratory: Cough Cardiac: No Symptoms Abdominal/Gastrointestinal: No Symptoms Genitourinary Symptoms: No Symptoms Musculoskeletal: No Symptoms Skin: No Symptoms Neurological: No Symptoms Psychological: No Symptoms Endocrine: No Symptoms Hematologic/Lymphatic: No Symptoms Immunological/Allergic: No Symptoms All Other Systems: Reviewed and Negative - Past Medical History Pertinent Past Medical History: Yes Neurological History: No Pertinent History ENT History: No Pertinent History Cardiac History: Other Respiratory History: No Pertinent History Endocrine Medical History: Hypothyroidism Musculoskeletal History: No Pertinent History GI Medical History: No Pertinent History History: No Pertinent History Psycho-Social History: No Pertinent History Female Reproductive Disorders: No Pertinent History Other Medical History: "heart is thick or stiff" - Past Surgical History Past Surgical History: Yes Neuro Surgical History: No Pertinent History Cardiac: No Pertinent History Respiratory: No Pertinent History Gastrointestinal: No Pertinent History Genitourinary: No Pertinent History Musculoskeletal: No Pertinent History Female Surgical History: Section, Tubal Ligation - Social History Smoking Status: Former smoker Exposure to second hand smoke: No Drug Use: none Patient Lives Alone: No - Nursing Vital Signs Nursing Vital Signs: Initial Vital Signs Temperature 99.9 F 04/14/21 14:35 Pulse Rate 95 H 04/14/21 14:35 Respiratory Rate 20 04/14/21 14:35 Blood Pressure 161/88 04/14/21 14:35 O2 Sat by Pulse Oximetry 94 L 04/14/21 14:35 Pain Scale Pain Intensity 4 - Physical Exam General Appearance: no apparent distress, alert, anxiety Eye Exam: PERRL/EOMI, eyes nml inspection Ears, Nose, Throat Exam: normal ENT inspection, moist mucous membranes, pharyngeal erythema Neck Exam: normal inspection, non-tender, supple, full range of motion Respiratory Exam: normal breath sounds, lungs clear, airway intact, No chest tenderness, No respiratory distress Cardiovascular Exam: regular rate/rhythm, normal heart sounds, normal peripheral pulses Gastrointestinal/Abdomen Exam: No tenderness Pelvic Exam: not done Rectal Exam: not done Back Exam: normal inspection, normal range of motion, No CVA tenderness, No vertebral tenderness Extremity Exam: normal inspection, normal range of motion, pelvis stable Neurologic Exam: alert, oriented x 3, cooperative, rn orthopaedics II-XII nml as tested, normal mood/affect, nml cerebellar function, nml station & gait, sensation nml Skin Exam: normal color, warm, dry Lymphatic Exam: No adenopathy SpO2 Interpretation: normal O2 Delivery: Room Air - Course Nursing assessment & vital signs reviewed: Yes Ordered Tests: Active Orders 24 hr Category Date Time Status CHEST 1 VIEW (PORTABLE) Stat Exams 04/14/21 14:48 Completed INFLUENZA A+B FRANK Stat Lab 04/14/21 15:00 Completed Medication Summary Discontinued Medications Generic Name Dose Route Start Last Admin Trade Name Minor PRN Reason Stop Dose Admin Hydrocodone Bitart/Acetaminophen 10 ml 04/14/21 15:02 04/14/21 15:13 Hydrocodone/Acetaminophen 5 Ml Udcup PO 04/14/21 15:03 10 ml STAT STA Administration Hydrocodone Bitart/Acetaminophen Confirm 04/14/21 15:05 Hydrocodone/Acetaminophen 5 Ml Udcup Administered 04/14/21 15:06 Dose 10 ml .ROUTE .STK-MED ONE Ceftriaxone Sodium 1,000 mg 04/14/21 15:01 04/14/21 15:12 Ceftriaxone Sodium 1000 Mg Inj Vial IM 04/14/21 15:02 1,000 mg STAT ONE Administration Ceftriaxone Sodium Confirm 04/14/21 15:06 Ceftriaxone Sodium 1000 Mg Inj Vial Administered 04/14/21 15:07 Dose 1,000 mg .ROUTE .STK-MED ONE Methylprednisolone Sodium 0 mg 04/14/21 15:01 04/14/21 15:12 Succinate 125 mg/ Sterile IM 04/14/21 15:02 125 mg Water 2 ml STAT ONE Administration Methylprednisolone Sodium Succinate Confirm 04/14/21 15:06 Methylprednis Sod Succ 125 Mg/2 Ml Vial Administered 04/14/21 15:07 Dose 125 mg .ROUTE .STK-MED ONE Lab/Rad Data: Laboratory Results 04/14/21 04/14/21 Range/Units 15:00 15:00 Influenza Type A Ag NEGATIVE (NEGATIVE) Influenza Type B Ag NEGATIVE (NEGATIVE) Group A Strep Antibody NOT DETECTED (NEGATIVE) - Progress Progress: improved Air Movement: good Progress Note: 04/14/21 15:25 Chest x-ray shows a new, mild right base interstitial alveolar opacity Blood Culture(s) Obtained: No Antibiotics given: Yes Counseled pt/family regarding: lab results, diagnosis, need for follow-up, rad results - Departure Departure Disposition: Home Clinical Impression: Right lower lobe pneumonia Condition: Stable Critical Care Time: No Referrals: MARIALUISA BECERRA NP [Primary Care Provider] - Follow up/PCP as directed Additional Instructions: Drink plenty of fluids. Take your medication as prescribed. Return to the emergency department if symptoms worsen. Follow-up with your primary care physician if your symptoms persist. Quarantine yourself until the results of your COVID-19 test returned. Prescriptions: Hydrocodone/Acetaminophen [Hydrocodone-Acetamn 7.5-325/15] 10 ml PO Q8H PRN PRN #120 ml MDD 30 ml PRN Reason: Cough Prednisone 10 mg [Deltasone 10 mg] 10 mg PO TID #12 tablet Albuterol 8 gm Mdi Hfa [Ventolin Hfa MDI] 8 gm IH Q4H #1 gm Azithromycin 250 mg [Zithromax 250 MG TABLET] 250 mg PO ZPACK #6 tablet
[2021-04-14] MEDS ORDERED: Rocephin 1000 MG INJ IM ONE (15:01)
[2021-04-14] MEDS ORDERED: solu-MEDROL 125 MG, Sterile H2O 10 ml 2 ML IM ONE ×2 (15:01)
[2021-04-14] MEDS ORDERED: HYDROCODONE-ACETAMIN 2.5-108/5 ML SOLUTION PO STA (15:02)
[2021-04-14] MEDS ORDERED: HYDROCODONE-ACETAMIN 2.5-108/5 ML SOLUTION ONE (15:05)
[2021-04-14] MEDS ORDERED: Rocephin 1000 MG INJ ONE (15:06)
[2021-04-14] MEDS ORDERED: solu-MEDROL ONE (15:06)
--- NOTE | 2021-04-14 15:20 | XRAY ---
Indication: Cough and short of breath. Comparison: January 15, 2020. Portable chest demonstrates new mild right base interstitial alveolar opacity. Remaining heart and lungs unremarkable. Bony thorax intact again with mild osteopenia and degenerative changes.
[2021-04-14 15:30] LABS: INFLUENZA A NEGATIVE (NEGATIVE); INFLUENZA B NEGATIVE (NEGATIVE)
[2021-04-14 15:36] VITALS: BP 127/82; PULSE 86; O2SAT 94
== END 2021-04-14 15:57 | disposition home or self-care (01) ==
LOC: ED 14:26
DX: J18.9 Pneumonia, unspecified organism (principal); J02.9 Acute pharyngitis, unspecified; R09.81 Nasal congestion; Z79.891 Long term (current) use of opiate analgesic
CPT/HCPCS: 71045; 87400; 87651; 94760; 96372; 99284; U0003; J0696; J2930; A9270-GY